=== PATIENT | male | born 1990 | race Caucasian/White ===

== ENCOUNTER 2024-05-31 22:29 | Emergency (ER) | payer OTHER, SELFPAY ==
[2024-05-31 22:30] VITALS: BP 171/91; BMI 31.2
--- NOTE | 2024-05-31 23:03 | ED.GENMED ---
History of Present Illness
General
Chief Complaint: Skin Problem
Source: patient
Exam Limitations: none
Time Seen by Provider: 05/31/24 22:45
History of Present Illness
History of Present Illness:
This is a 33 year old male that comes in with c/o right leg lump. States that he had a vein ablation on the 04 of May. States that he had no issues. States that this week he noticed a lump on the right medial thigh. States that this week the
pain has increased and there is some redness. States that his legs rub in his pants and some of the redness may be due to this. Denies any fever, chills, chest pain, SOB, abd pain, nausea, vomiting, diarrhea, headache, dizziness.
Past History
Past History
ED Past Medical History: None; Negative Asthma, HTN, Hypercholesterolemia or NIDDM
ED Past Surgical History: Other (Hernia repair. Nasal surgery, Vein ablation legs)
Social History
Tobacco: Non-smoker
Alcohol: None
Personal:
Living: with family
Employment: Employed
Review of Systems
Review of Systems
All Other Systems: ROS reviewed and negative except as documented in HPI and ROS
Constitutional: Reports no symptoms; Denies fever or chills
EENT: Reports no symptoms
Respiratory: Reports no symptoms; Denies cough or trouble breathing
Cardiac: Reports no symptoms; Denies chest pain
ABD/GI: Denies abdominal pain, nausea, vomiting or diarrhea
: Reports no symptoms
Musculoskeletal: Reports no symptoms
Skin: Reports other (Small lump on the right thigh with redness)
Neurological: Reports no symptoms; Denies dizzy or headache
Psychiatric: Reports no symptoms
Phy Exam
General Physical Exam
General Presentation: well appearing and no apparent distress
General age: appears stated age
General Skin: warm and dry
General Habitus: normal
General Mental: alert
General Hydration: appears well hydrated
ENT Exam
ENT Exam: TM's normal, pharynx normal and neck supple
Eye Exam
Eye Exam: EOMI
Cardiovascular Exam
Cardiovascular Exam: regular rate/rhythm, no edema, no murmur and normal peripheral pulses
Pulmonary Exam
Pulmonary Exam: lungs clear, no respiratory distress, no rales, chest non tender, no crackles, no rhonchi, no wheezing and no cough
Musculoskeletal Exam
Musculoskeletal Exam: full ROM and no edema
Skin Exam
Skin Exam: normal color, warm/dry, no petechia and other (Small quarter size lump on the medial aspect of the right thigh. Redness noted on bilateral thighs as patient states his pants rub. Negative for increased warmth. )
Psychiatric Exam
Psychiatric Exam: normal mood/affect
Course
Orders/Labs/Results
Orders:
Orders
06/01/24 00:00
US Periph Venous LOWER Ext RT Urgent
Comment: Recent vein ablation
Reason For Exam: Small lump medial thigh.
Vital Signs
Initial and Last Documented VS:
Initial Vital Signs
Temp Pulse Resp BP Pulse Ox
98.1 F 70 16 171/91 99
05/31/24 22:30 05/31/24 22:30 05/31/24 22:30 05/31/24 22:30 05/31/24 22:30
Last Documented Vital Signs
Temp Pulse Resp BP Pulse Ox
98.6 F 64 16 145/74 99
06/01/24 00:00 06/01/24 00:00 06/01/24 00:00 06/01/24 00:00 06/01/24 00:00
MDM/Problems Addressed
Differential Diagnosis Includes:
Superficial thrombosis, Phlebitis.
MDM/Problems Addressed:
This is a 33 year old male that comes in with c/o redness on the right thigh and a small palpable lump. States that this week it has started to hurt.
Will get US.
Back into see patient. Explained that the US was negative for DVT and there was no mass or fluid collection in this area. There is enlarge lymph nodes in the right groin. Patient as said that the redness on his legs is due to his pants. However, to
be safe will place patient on antibiotics. Patient to return with increased redness. Follow up with the Physician who did the vein ablation. Return with any concerns.
Chronic conditions affecting care:
Vein Ablation
Acute Exacerbation and/or Progression of Chronic Illness:
NA
*Radiology
Radiology exam reviewed: other (Verbal report- Negative for DVT, No mass or fluid collection in the area seen that patient feels a lump. Patient has enlarged lymph nodes in the right groin. )
*Pulse Oximetry
Patient hypoxic: no
*EKG
Interpreted by ED Provider?: NA
Rate: EKG- N/A
*Paleologist Interpretation
Rate: Paleologist- N/A
*Critical Care Note
Total Time (30-74mins, 75-104mins- exclusive of procedures): Not Applicable
ED Attending Note
-
Portions of this chart may have been created with voice recognition software.� Occasional wrong word or��sound alike� substitutions may have occurred due to the inherent limitations of voice recognition software.
Discharge Plan
Departure
Patient Disposition: Home (Routine Discharge)
Date of Disposition: 06/01/24
Time of Disposition: 01:12
Patient with high blood pressure during this ER visit?: Yes
Condition: Good
Covid-19: Not Applicable
Discharge Problem:
Phlebitis, superficial
Instructions: Phlebitis (DC), BLOOD PRESSURE
Prescriptions:
New
cephalexin 500 mg capsule
500 mg PO TID 10 Days Qty: 29 0RF
Referrals:
NONE,* [Family Provider] -
Stand Alone Forms: Return to Work
Activity Restrictions/Additional Instructions:
As discussed, your Ultrasound is negative for any DVT and there is no mass or fluid collection in the area that is red. This may be a phlebitis. You may use Warm compresses to the leg for 20min 3-4 times daily. You have been started on an antibiotic
as the Ultrasound shows that you have lymph nodes in the groin that are enlarged. You have been given your first dose here. Please follow up with the physician who did the vein ablation. IF YOU HAVE FEVER, INCREASED REDNESS, OR YOU HAVE ANY OTHER
CONCERNS PLEASE RETURN TO THE EMERGENCY ROOM.
Interventions
Interventions:
*Risk Screen - Suicide Last Done: 05/31/24 22:30
*General Assessment Last Done: 05/31/24 22:30
*Neglect/Abuse Screening Last Done: 05/31/24 22:30
ED- Fall Risk Assessment Last Done: 05/31/24 22:49
ED-Skin Assessment Last Done: 05/31/24 22:49
Discharge Date and Time
Print Language: CHILEAN
[2024-06-01] VITALS: BP 145/74
[2024-06-01] MEDS: KEFLEX 500 MG PO (01:25)
== END 2024-06-01 01:26 | disposition home or self-care (01) ==
LOC: EMR 22:29
PROVIDERS: EMERGENCY PHYSICIAN Student in an Organized Health Care Education/Training Program
DX: I80.01 Phlebitis and thrombophlebitis of superficial vessels of right lower extremity (principal)
CPT/HCPCS: 99284; 93971